=== PATIENT | male | born 1955 | race Caucasian/White ===

== ENCOUNTER 2019-11-09 16:05 | Outpatient (CLI) | payer MEDICARE, SELFPAY ==
[2019-11-09 16:46] LABS: Alanine Aminotransferase 22 U/L (4-50); Albumin Level 4.7 g/dL (3.5-5.1); Alkaline Phosphatase 50 U/L (38-126); Aspartate Amino Transferase 30 U/L (17-59); Bilirubin,Total 0.6 mg/dL (0.2-1.3); Blood Urea Nitrogen 47 mg/dL (9-20); Calcium 9.9 mg/dL (8.4-10.2); Carbon Dioxide 29 mmol/L (22-30); Chloride 100 mmol/L (98-107); Estimated Glomerular Filt Rate 36; Glucose 98 mg/dL (75-110); Potassium 4.6 mmol/L (3.4-5.0); Sodium 137 mmol/L (137-145)
== END 2019-11-09 16:06 | disposition home or self-care (01) ==
PROVIDERS: PCP Physician Assistant; Visit Provider Physician Assistant
DX: N28.9 Disorder of kidney and ureter, unspecified (principal)
CPT/HCPCS: 36415; 80053

== ENCOUNTER → 2019-12-07 11:14 | Outpatient (CLI) | payer MEDICARE, SELFPAY ==
--- NOTE | ~2019-12-07 | XR_ITS ---
EXAMINATION: XR abdomen/kub 1V DATE: 12/07/2019 11:27 INDICATION: Left kidney stone. TECHNIQUE: A supine view of the abdomen on 2 radiographs was obtained. COMPARISON: CT abdomen and pelvis 05/17/2019, abdomen radiographs 06/14/2019 FINDINGS: There are no dilated loops of bowel. Surgical clips overlie left pelvis. The kidneys are ob scured by bowel. There is a 3 mm stone in left kidney. There are phleboliths in the pelvis. IMPRESSION: 1. 3 mm stone in left kidney. Bowel decreases sensitivity for urolithiasis. Reviewed, dictated and finalized at location A.
== END ==
PROVIDERS: PCP Internal Medicine; Visit Provider Urology
DX: N20.0 Calculus of kidney (principal)
CPT/HCPCS: 74018

== ENCOUNTER 2020-05-09 16:38 | Outpatient (CLI) | payer MEDICARE, SELFPAY ==
[2020-05-09 16:58] LABS: Hematocrit 41.3 % (42.0-52.0); Hemoglobin 13.8 g/dL (14.0-18.0); Mean Corpuscular HGB Conc 33.4 g/dl (32-36); Mean Corpuscular Hemoglobin 32.4 pg (26-34); Mean Corpuscular Volume 96.9 fl (80-100); Mean Platelet Volume 9.8 fl (7.4-10.4); Platelet Count Result 218 k/mm3 (150-375); Red Blood Count 4.26 M/mm3 (4.6-6.20); Red Cell Distribution Width 12.8 % (11.5-14.5); White Blood Count 4.7 K/mm3 (4.5-10.0)
[2020-05-09 17:09] LABS: Alanine Aminotransferase 24 U/L (4-50); Albumin Level 4.5 g/dL (3.5-5.1); Alkaline Phosphatase 47 U/L (38-126); Anion Gap 7 mmol/L (8-16); Aspartate Amino Transferase 28 U/L (17-59); Bilirubin,Total 0.7 mg/dL (0.2-1.3); Blood Urea Nitrogen 39 mg/dL (9-20); Calcium 9.3 mg/dL (8.4-10.2); Carbon Dioxide 27 mmol/L (22-30); Chloride 105 mmol/L (98-107); Estimated Glomerular Filt Rate 32; Glucose 99 mg/dL (75-110); Potassium 4.6 mmol/L (3.4-5.0); Sodium 139 mmol/L (137-145)
[2020-05-09 17:39] LABS: Prostate Specific Antigen 0.9 ng/mL (< OR = 4.0)
== END 2020-05-09 16:39 | disposition home or self-care (01) ==
LOC: ANHLAB 16:42
PROVIDERS: PCP Internal Medicine; Visit Provider Physician Assistant
DX: N18.9 Chronic kidney disease, unspecified (principal); R53.83 Other fatigue; Z12.5 Encounter for screening for malignant neoplasm of prostate
CPT/HCPCS: 36415; 80053; 84153; 84443; 85027; G0103

== ENCOUNTER → 2020-06-12 14:19 | Outpatient (CLI) | payer MEDICARE, SELFPAY ==
--- NOTE | ~2020-06-12 | XR_ITS ---
EXAMINATION: XR abdomen/kub 1V INDICATION: Left nephrolithiasis TECHNIQUE: Supine views of the abdomen were obtained on 2 radiographs. COMPARISON: 12/07/2019 FINDINGS: There is an unchanged 3 mm stone of the left kidney lower pole. No additional urolithiasis is identified. A moderate volume of colonic stool is present. Surgical clips are again seen overlying the left of midline pelvis. There is mild osteoarthritis of the hips. IMPRESSION: 1. Stable left nephrolithiasis. Reviewed, dictated and finalized at location A.
== END ==
PROVIDERS: Visit Provider Urology
DX: N20.0 Calculus of kidney (principal)
CPT/HCPCS: 74018

== ENCOUNTER → 2020-07-03 12:52 | Outpatient (CLI) | payer MEDICARE, SELFPAY ==
--- NOTE | ~2020-07-03 | US_ITS ---
EXAMINATION: US renal BI EXAM DATE: 07/03/2020 13:35 INDICATION: Calculus of kidney . TECHNIQUE: Multiple grayscale and Doppler images of the kidneys were obtained (by a technologist who performed the scan) and subsequently reviewed. Comparison is made to prior examination from 04/19/2019 . FINDINGS: Right kidney: There is normal contour and echogenicity. It measures 11.2 x 4.7 x 6.0 centimeters. T here are no focal renal lesions identified. There is no hydronephrosis. Left kidney: There is normal contour and echogenicity. It measures 10.1 x 6.0 x 4.8 centimeters. Pro bable left nephrolithiasis at 8 mm in size. There is no hydronephrosis. Bladder unremarkable. IMPRESSION: 1. Probable left nephrolithiasis reidentified. 2. No hydronephrosis. Reviewed, dictated and finalized at location B. HELPER JUICE
== END ==
PROVIDERS: PCP Internal Medicine; Visit Provider Internal Medicine Nephrology
DX: N20.0 Calculus of kidney (principal); N18.32 Chronic kidney disease, stage 3b
CPT/HCPCS: 76775

== ENCOUNTER 2020-12-15 14:36 | Outpatient (CLI) | payer MEDICARE, SELFPAY ==
--- NOTE | ~2020-12-15 | XR_ITS ---
XR abdomen/kub 1V DATE: 12/15/2020 14:50 INDICATION: Left kidney stone TECHNIQUE: AP projection, 2 views COMPARISON: 06/12/2020 KUB FINDINGS: There is a prominent amount fecal material in the colon, particularly the ascending and tra nsverse colon. No bowel obstruction. Approximately 3 mm calcification overlying the left kidney. The psoas shadows are intact. No visceromegaly is detected. Postoperative changes overlying the lower quadrants and pelvis. IMPRESSION: Prominent amount of feces in colon; no evidence of obstruction 3 mm calcification overlying left kidney Reviewed, dictated and finalized at Location A. Reviewed, dictated and finalized at location A.
== END 2020-12-15 14:37 | disposition home or self-care (01) ==
PROVIDERS: PCP Internal Medicine; Visit Provider Urology
DX: N20.0 Calculus of kidney (principal)
CPT/HCPCS: 74018

== ENCOUNTER 2024-10-28 01:50 | Day surgery (SDC) | payer MEDICARE, SELFPAY ==
[2024-10-15 14:49] VITALS: BMI 21.4
--- OUTSIDE RECORDS SUMMARY | 2024-10-28 01:55 | XMS_ITS | Clinical Summary ---
Author Organization [facility] Address [address] [place] [id number] Phone Care Team Providers Care Code Enforcement Supervisor Name Role Phone Dez Paulino DO Primary Care Provider [phone] Allergies No known active allergies Medications Medication Sig Dispensed Refills Start Date End Date Status lisinopril (PRINIVIL) 20 MG tablet 04/26/2020 Active potassium citrate (UROCIT-K) 10 MEQ (1080 MG) CR tablet 06/12/2020 Activ e omega-3 (FISH OIL) 1000 MG capsule Take 1,000 mg by mouth 1 (one) time each day Active magnesium 30 MG tablet Take 30 mg by mouth 2 (two) times a day Active Cholecalciferol (Vitamin D) 25 MCG (1000 UT) tablet Take by mouth Activ e Multiple Vitamin (multivitamin) capsule Take 1 capsule by mouth 1 (one) time each day Active Garlic 10 MG capsule Take by mouth A ctive Active Problems Problem Noted Date Diagnosed Date Essential hypertension 07/03/2020 Calculus of kidney 07/03/2020 Stage 3b chronic kidney disease 07/03/2020 Immunizations Name Administration Dates Next Due Fluzone High-Dose 07/05/2020 Influenza TIV (IM) 07/03/2020(Deferred: Patient Refused) Family History Medical History Relation Comments Kidney disease Neg Hx Social History Tobacco Use Types Packs/Day Years Used Date Smoking Tobacco: Former Smokeless Tobacco: Never Alcohol Use Standard Drinks/Week Comments Not Currently 0 (1 standard drink = 0.6 oz pur e alcohol) Sex and Gender Information Value Date Recorded Sex Assigned at Not on file Gender Identity Not on file Sexual Orientation Not on file Last Filed Vital Signs Vital Sign Reading Time Taken Comments Blood Pressure 138/70 10/02/2020 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 Pulse 84 10/02/2020 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 Temperature 36.5 C (97.7 F) 10/02/2020 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 Respiratory Rate - - Oxygen Saturation - - Inhaled Oxygen Concentration - - Weight 82.1 kg (181 lb) 10/02/2020 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 Height 185.4 cm (6' 1 ) 10/02/2020 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 Body Mass Index 23.88 10/02/2020 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
--- OUTSIDE RECORDS SUMMARY | 2024-10-28 01:55 | XMS_ITS | Continuity of Care Document ---
Author Organization [facility] Address [address] [place] [address] utive [facility] [address] [place] [address] Phone Care Team Providers Care Concrete Pouring Supervisor Name Role Phone Simeon Ramirez Unavailable Unavailable Procedures Procedure Date Office/outpatient Visit, Est Office/outpatient Visit, Est Eye Exam Established Pt Advance Directives Directive Yes / No Effective Date File Name No Information Encounters Encounter Description Practice Location Reason(s) For Visit Diagnoses Date Provider Providers Copied on Encounter Office/outpat ient Visit, Est [facility], [address] [place] [address] [address], [place], [place], [id number], [place] tel:[phone] [facility] No Information [address] [address], [place], [place], [facility], [place]. tel:[phone] Office/outpat ient Visit, [facility], [address] [place] [address] [address], [place], [place], [id number], [place] tel:[phone] [facility] No Information [address] [facility] [address], [place], [address], [place]. tel:[phone] [facility], [address] [place] [address] [address], [place], [place], [id number], [place] tel:[phone] [facility] No Information 6[address], [address], [place]. tel:[phone] Referring Provider: Jerry Enriquez OD, [address] [place] [address], [address]. tel:[phone] Family History Family Member Type Diagnosis Age At Onset No Information Payers Payer name Insurance type Covered democrat ID Authoriza [id number](s) [facility] Out Of State [id number] Social History Type Description Quantity Date Captured Comments Sex Male Smoking Status No Information Chief Complaint And Reason For Visit No Information Reason For Referral Reason For Referral No Information History Of Present Illness Encounter Date Complaint History Of Prese nt Illness No Information Functional Status Date Functional Assessmen t No Information Instructions Date Instruction Additional Infor mation No Information Assessments Type Assessment Date No Information Patient Care Teams Name Effective Dates (start - stop) Status Members No Information
[2024-10-28 07:41] VITALS: BP 154/68; PULSE 56; RESP 14; TEMP 36.2; O2SAT 100
[2024-10-28] MEDS: LACTATED RINGERS 1,000 ML 150 ML IV CONT (07:49)
--- NOTE | 2024-10-28 07:53 | WPDANESEPPF ---
Anes - Initial Pre Proc Eval Procedure: Operation Date: 10/28/24 08:30 Proposed Procedures p Colonoscopy - Justin Holt MD Date/Time: 10/28/24 07:53 Surgeon: Justin Holt MD Pre Op Diagnosis: fecal abnormalities Patient Data Age: 69 Gender: M Height: 1.85 m Weight: 72.5 kg Last Vital Signs Temp 97.2 F L 10/28/24 07:41 Pulse 56 L 10/28/24 07:41 Resp 14 10/28/24 07:41 BP 154/68 H 10/28/24 07:41 Pulse Ox 100 10/28/24 07:41 O2 Del Method Room Air 10/28/24 07:41 Allergies Allergy/AdvReac Type Severity Reaction Status Date / Time No Known Allergies Allergy Verified 10/28/24 07:35 Home Medications ?Medication ?Instructions ?Recorded ?Confirmed ?Type potassium citrate 10 mEq (1,080 10 meq PO DAILY 11/09/19 10/28/24 History mg) tablet,extended release (Urocit-K 10) lisinopril 10 mg tablet 10 mg PO DAILY #90 tabs 06/02/24 10/28/24 Rx terbinafine HCl 250 mg tablet 250 mg PO DAILY #30 tabs 09/23/24 10/28/24 Rx Patient hx anesthesia problems: none Family hx anesthesia problems: none Results Review: All pre-operative results and documents have been reviewed as part of the pre-operative evaluation. PMFSH Past Medical History Medical History Kidney stones Social History Social History Smoking status: Former smoker Tobacco type: cigarettes Second hand tobacco smoke exposure: No Additional smoking assessment comments: socially smoked Alcohol intake: never Living arrangements: with family Spiritual care concerns: No Anes - Eval Final PreProcedure Day of Procedure 10/28/24 07:53 Patient weight: normal Lungs: normal air movement Airway: Mallampati scale class II Neurological: alert and oriented Last oral intake: >/= 8 hours ASA classification: II Emergent: no Anesthetic plan: proceed Anesthesia type and monitoring: general GIVS and standard monitoring Results Review: All pre-operative results and documents have been reviewed as part of the pre-operative evaluation. HTN, active w 10K steps/day, wts, no cp or sob. Informed Consent: The patient's anesthetic plan and its attendant risks and benefits were discussed with the patient/family/POA. Questions were solicited and answers provided to the satisfaction of the patient/family/POA.
--- NOTE | 2024-10-28 08:11 | PM.HPGS ---
History of Present Illness History of Present Illness Consent: Risks, benefits, and alternatives have been discussed and questions answered. Patient agrees to proceed with procedure. Chief complaint: fecal abnormalities Narrative: Brett Torres is a 69 year old male here for first colonoscopy, + cologuard Review of Systems Review of Systems: All systems reviewed & are unremarkable except as noted in HPI and below PMFSH Past Medical History Medical History Kidney stones Social History Social History Smoking status: Former smoker Tobacco type: cigarettes Second hand tobacco smoke exposure: No Additional smoking assessment comments: socially smoked Alcohol intake: never Living arrangements: with family Spiritual care concerns: No Meds Home Medications and Allergies Home Medications ?Medication ?Instructions ?Recorded ?Confirmed ?Type potassium citrate 10 mEq (1,080 10 meq PO DAILY 11/09/19 10/28/24 History mg) tablet,extended release (Urocit-K 10) lisinopril 10 mg tablet 10 mg PO DAILY #90 tabs 06/02/24 10/28/24 Rx terbinafine HCl 250 mg tablet 250 mg PO DAILY #30 tabs 09/23/24 10/28/24 Rx Allergies Allergy/AdvReac Type Severity Reaction Status Date / Time No Known Allergies Allergy Verified 10/28/24 07:35 Vital Signs Vital Signs - 24 hr 10/28/24 07:41 Temperature 97.2 F L Pulse Rate 56 L Respiratory Rate 14 Blood Pressure 154/68 H Pulse Oximetry 100 Oxygen Delivery Room Air Exam Const: General: comfortable and no acute distress HENMT: Face/Nose/Sinus: Normal nares present Eyes: General: appearance normal, both eyes and all related structures Neck: Neck: no JVD Resp: Auscultation: clear to auscultation bilaterally Cardio: Rate: regular rate Rhythm: regular rhythm GI: Inspection: non-distended GI Palp: Yes Soft to palpation Skin: General skin exam: normal color Neuro: General: gait normal Speech: normal speech Extrem: General: normal to inspection Psych: Mental Status: mental status grossly normal Assessment and Plan Assessment and plan (1) Positive colorectal cancer screening using Cologuard test: Code(s): R19.5 - Other fecal abnormalities Status: Acute Assessment and Plan: colonoscopy
[2024-10-28 08:43] VITALS: BP 101/59; PULSE 53; RESP 16; O2SAT 100
[2024-10-28 08:53] VITALS: BP 106/59; PULSE 50; RESP 12; O2SAT 100
[2024-10-28 09:03] VITALS: BP 113/60; PULSE 50; RESP 18; O2SAT 100
== END 2024-10-28 09:19 | disposition home or self-care (01) ==
PROVIDERS: PCP Internal Medicine; Referring Provider Nurse Practitioner; Visit Provider Internal Medicine Gastroenterology
PROC: 0DJD8ZZ Inspection of Lower Intestinal Tract, Via Natural or Artificial Opening Endoscopic (ICD-10-PCS; CPT 45378; principal; 2024-10-28 08:30)
DX: R19.5 Other fecal abnormalities (principal); K64.8 Other hemorrhoids; Z87.891 Personal history of nicotine dependence
CPT/HCPCS: 45378; J2704; J7120